=== PATIENT | female | born 1970 | race Hispanic/Latino ===

== ENCOUNTER → 2021-04-22 | Outpatient (CLI) | payer OTHER | LOC: RAD 11:16 | PROVIDERS: ATTEND Surgery | DX: I86.8 Varicose veins of other specified sites (principal); E66.01 Morbid (severe) obesity due to excess calories | CPT/HCPCS: 93925; 93970 ==

== ENCOUNTER → 2022-09-29 | Day surgery (SDC) | payer OTHER ==
[~2022-09-29] MED LIST: AMLODIPINE BESY10 MG PO; CARBAMAZEPINE200 MG PO; DICYCLOMINE HCL10 MG PO; DIOVAN160 MG PO; FOLIC ACID0.4 MG PO; HYDRALAZINE HCL 20 MG/ML VIAL ONE; LACTATED RINGER'S 1,000 ML ONE; LEVOTHYROXINE100 MCG PO; LEVOTHYROXINE50 MCG PO; LIDOCAINE HCL 2% LOCAL INJ 5 ML SDV VIAL INJ ONE; METHOTREXATE2.5 MG PO; MIDAZOLAM HCL 2 MG/2 ML VIAL ONE; OMEPRAZOLE40 MG PO; ORENCIA125 MG/1 M IART; PROMETHAZINE HC25 M1 PO; PROPOFOL IV EMULSION 10 MG/ML 20 ML VIAL ONE; SULFAMETH PO
[2022-09-29 11:26] VITALS: TEMP 97
[2022-09-29 11:48] VITALS: BP 155/88; PULSE 80; RESP 18; O2SAT 99
== END | disposition home or self-care (01) ==
LOC: OR 08:43
PROVIDERS: ATTEND Internal Medicine Gastroenterology
DX: K29.50 Unspecified chronic gastritis without bleeding (principal); K44.9 Diaphragmatic hernia without obstruction or gangrene; K63.89 Other specified diseases of intestine; K57.30 Diverticulosis of large intestine without perforation or abscess without bleeding; K64.8 Other hemorrhoids; R19.7 Diarrhea, unspecified; I10 Essential (primary) hypertension; E78.5 Hyperlipidemia, unspecified; E03.9 Hypothyroidism, unspecified; G40.909 Epilepsy, unspecified, not intractable, without status epilepticus; M06.9 Rheumatoid arthritis, unspecified; Z01.810 Encounter for preprocedural cardiovascular examination; Z79.1 Long term (current) use of non-steroidal anti-inflammatories (NSAID); Z79.899 Other long term (current) drug therapy
CPT/HCPCS: 43239; 45380; 93005; J0360; J2001; J2250; J2704; J7121; 45378